=== PATIENT | male | born 1955 | race Caucasian/White ===

== ENCOUNTER 2022-01-18 10:45 | Outpatient (CLI) | payer OTHER | END 2022-01-18 10:46 | disposition home or self-care (01) | LOC: CSHCT 10:45 | PROVIDERS: ATTEND Family Medicine | DX: Z13.6 Encounter for screening for cardiovascular disorders (principal); I25.10 Atherosclerotic heart disease of native coronary artery without angina pectoris; I25.83 Coronary atherosclerosis due to lipid rich plaque | CPT/HCPCS: 75571 ==